=== PATIENT | male | born 1990 ===

== ENCOUNTER 2019-06-14 11:16 | Emergency (ER) | payer MEDICAID ==
--- NOTE | 2019-06-14 12:13 | EDM.PDOC ---
ED HPI GENERAL MEDICAL PROBLEM - General Chief Complaint: General Stated Complaint: CUT FINGER Time Seen by Provider: 06/14/19 11:35 Source of Information: Reports: Patient History Limitations: Reports: No Limitations - History of Present Illness INITIAL COMMENTS - FREE TEXT/NARRATIVE: Neal presents with a laceration of his left hand, sustained while cutting the top off a beer can to make an luann tray. Td up to date. Clean knife. No motor or sensory deficits. Past Medical History - Past Health History Medical/Surgical History: Denies Medical/Surgical History HEENT History: Reports: Impaired Vision - Infectious Disease History Infectious Disease History: Reports: Hepatitis C - Past Surgical History Cardiovascular Surgical History: Reports: None Respiratory Surgical History: Reports: None GI Surgical History: Reports: None Social & Family History - Family History Family Medical History: Noncontributory - Tobacco Use Smoking Status *Q: Current Every Day Smoker Years of Tobacco use: 10 Packs/Tins Daily: 0.5 Used Tobacco, but Quit: No Second Hand Smoke Exposure: Yes - Caffeine Use Caffeine Use: Reports: Coffee, Energy Drinks - Recreational Drug Use Recreational Drug Use: Yes Drug Use in Last 12 Months: No Recreational Drug Type: Reports: Other (see below) Other Recreational Drug Type: Opioids Recreational Drug Use Frequency: Not Used In Over 6 Months - Living Situation & Occupation Social History Comment: erlin from [facility] ED ROS GENERAL - Review of Systems Review Of Systems: See Below Skin: Reports: Wound Neurological: Reports: No Symptoms ED EXAM, GENERAL - Physical Exam Exam: See Below Exam Limited By: No Limitations General Appearance: Alert, WD/WN, No Apparent Distress Extremities: Normal Range of Motion, Non-Tender, Normal Capillary Refill, Other (sensation intact to light touch; 4 cm laceration of proximal left index finger , inspection excludes contamination/foreign body and no joint involvement; copiously irrigated; repair under local with 4 interrupted ethilon sutures) Course - Vital Signs Last Recorded V/S: Last Vital Signs Temp 98.4 F 06/14/19 11:53 Pulse 68 06/14/19 11:53 Resp 18 06/14/19 11:53 BP 120/57 L 06/14/19 11:53 Pulse Ox 99 06/14/19 11:53 Departure - Departure Time of Disposition: 11:59 Disposition: Home, Self-Care 01 Clinical Impression: Laceration - Discharge Information Sepsis Event Note - Evaluation Sepsis Screening Result: No Definite Risk - Focused Exam Vital Signs: Vital Signs Temp Pulse Resp BP Pulse Ox 06/14/19 11:53 98.4 F 68 18 120/57 L 99 Date Exam was Performed: 06/14/19 Time Exam was Performed: 12:08
== END 2019-06-14 12:20 | disposition home or self-care (01) ==
LOC: LB.ED 11:16
DX: S61.412A Laceration without foreign body of left hand, initial encounter (principal); F17.210 Nicotine dependence, cigarettes, uncomplicated; W26.0XXA Contact with knife, initial encounter; Y93.89 Activity, other specified
CPT/HCPCS: 12002; 99282-25; 99283